=== PATIENT | female | born 1975 | race African-American/Black ===

== ENCOUNTER 2020-10-24 16:20 | Emergency (ER) | payer OTHER ==
[~2020-10-24] VITALS: Ht 170.2 cm; Wt 72.7 kg
[2020-10-24 16:20] VITALS: BP 136/77
== END 2020-10-24 20:07 | disposition home or self-care (01) ==
LOC: EMS 16:22
DX: M79.672 Pain in left foot (principal)
CPT/HCPCS: 99283

== ENCOUNTER 2021-07-07 14:18 | Emergency (ER) | payer OTHER ==
[~2021-07-07] VITALS: Ht 167.6 cm; Wt 72.7 kg
[2021-07-07 14:42] VITALS: BP 139/74
[2021-07-07] MEDS ORDERED: KETOROLAC TROMETHAMINE 30 MG/ML VIAL IM ONE (15:15)
[2021-07-07] MEDS ORDERED: CYCLOBENZAPRINE HCL 10 MG TABLET PO ONE (15:15)
[2021-07-07] MEDS ORDERED: CYCL-448 PO (15:22)
== END 2021-07-07 17:05 | disposition home or self-care (01) ==
LOC: EMS 14:18
DX: M54.9 Dorsalgia, unspecified (principal)
CPT/HCPCS: 96372; 99283; J1885